=== PATIENT | male | born 1970 | race African-American/Black ===

== ENCOUNTER 2021-08-28 19:36 | Emergency (ER) | payer SELFPAY ==
[~2021-08-28] VITALS: Ht 172.7 cm; Wt 142.4 kg
[2021-08-28 19:38] VITALS: BP 137/91
--- NOTE | 2021-08-28 19:44 | NUR ---
PATIENT TO BED 1
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
[2021-08-28] MEDS ORDERED: IBUP-2213 PO (21:21)
[2021-08-28] MEDS ORDERED: METH-1681 PO (21:23)
[2021-08-28] MEDS ORDERED: LID5T TP (21:23)
[2021-08-28 22:00] VITALS: BP 137/91
--- NOTE | 2021-08-28 22:00 | NUR ---
Patient discharged with v/s stable. Written and verbal after care instructions given and explained. Patient alert, oriented and verbalized understanding of instructions. Ambulatory with steady gait. All questions addressed prior to discharge. ID band removed. Patient advised to follow up with PMD. Rx of Lidodermpatch, Robaxin given. Patient educated on indication of medication including possible reaction and side effects. Opportunity to ask questions provided and answered.
== END 2021-08-28 22:00 | disposition home or self-care (01) ==
LOC: MED 19:36
DX: S46.812A Strain of other muscles, fascia and tendons at shoulder and upper arm level, left arm, initial encounter (principal); S16.1XXA Strain of muscle, fascia and tendon at neck level, initial encounter; R07.89 Other chest pain; Z79.899 Other long term (current) drug therapy; V49.49XA Driver injured in collision with other motor vehicles in traffic accident, initial encounter; Y93.89 Activity, other specified; Y92.89 Other specified places as the place of occurrence of the external cause; Y99.8 Other external cause status
CPT/HCPCS: 71045; 99283